=== PATIENT | male | born 1980 | race Two or more races ===

== ENCOUNTER 2016-11-01 13:56 | Emergency (ER) | payer OTHER ==
[~2016-11-01] VITALS: Ht 157.5 cm; Wt 62.8 kg
[2016-11-01 14:14] VITALS: BP 142/95
--- NOTE | 2016-11-01 14:31 | RAD ---
Indication injury. Pain particularly in the thumb. AP oblique and lateral views of the left hand were obtained. No bony abnormality is seen.
--- NOTE | 2016-11-01 14:42 | PHYS DOC ---
Past Medical History Past Medical History: No Pertinent History Past Surgical History: No Surgical History Alcohol Use: None Drug Use: None Adult General Chief Complaint Chief Complaint: HAND PROBLEM HPI HPI Patient is a 36 year old male presents to the emergency department stating that he let hit his left thumb and metacarpal area on a doorknob. He states that this happened on Saturday. He states he is having increased pain with movement of the thumb. He denies any numbness or tingling into the area. He states he has not taken anything for pain or discomfort. He has not used any ice packs elevation. He states he has increased pain with any movement with thumb. Patient is right-hand dominant. Review of Systems Review of Systems Constitutional: Denies fever or chills [] Eyes: Denies change in visual acuity, redness, or eye pain [] HENT: Denies nasal congestion or sore throat [] Respiratory: Denies cough or shortness of breath [] Cardiovascular: No additional information not addressed in HPI [] GI: Denies abdominal pain, nausea, vomiting, bloody stools or diarrhea [] : Denies dysuria or hematuria [] Musculoskeletal: Denies back pain. C/o left thumb pain Integument: Denies rash or skin lesions [] Neurologic: Denies headache, focal weakness or sensory changes [] Endocrine: Denies polyuria or polydipsia [] Current Medications Current Medications Current Medications Medications (Trade) Dose Ordered Sig/[facility] Start Time Stop Time Status Last Admin Dose Admin Ibuprofen (Motrin) 800 mg 1X ONCE 11/01/16 14:45 11/01/16 14:46 DC 11/01/16 15:04 800 MG Allergies Allergies Allergies Coded Allergies Type Severity Reaction Last Updated Verified No Known Drug Allergies 11/01/16 No Physical Exam Physical Exam Constitutional: Well developed, well nourished, no acute distress, non-toxic appearance. [] HENT: Normocephalic, atraumatic, bilateral external ears normal, oropharynx moist, no oral exudates, nose normal. [] Eyes: PERRLA, EOMI, conjunctiva normal, no discharge. [] Neck: Normal range of motion, no tenderness, supple, no stridor. [] Cardiovascular:Heart rate regular rhythm, no murmur [] Lungs & Thorax: Bilateral breath sounds clear to auscultation [] Skin: Warm, dry, no erythema, no rash. [] Back: No tenderness Extremities: Left thumb tenderness, no cyanosis, no clubbing, ROM intact, no edema. No swelling no discoloration or bruising noted to the left thumb or the left first metacarpal area. Neurologic: Alert and oriented X 3, normal motor function, normal sensory function, no focal deficits noted. [] Psychologic: Affect normal, judgement normal, mood normal. [] Current Patient Data Vital Signs Vital Signs Date Time Temp Pulse Resp B/P (MAP) Pulse Ox O2 Delivery O2 Flow Rate FiO2 11/01/16 14:14 98.9 103 16 100 Room Air 98.9 EKG EKG [] Radiology/Procedures Radiology/Procedures [][facility] [address] [place] [address] IMAGING REPORT Signed PATIENT: PERRY MAZARIEGOS ACCOUNT: [id number] : 1980 LOCATION: ER AGE: 36 SEX: M EXAM STATUS: PRE ER ORD. PHYSICIAN: ALEX TAPIA APRN REASON: left thumb pain hit with door today PROCEDURE: HAND LEFT 3V Indication injury. Pain particularly in the thumb. AP oblique and lateral views of the left hand were obtained. No bony abnormality is seen. DICTATED and SIGNED BY: HANANE JACOB MD DATE: 11/01/16 1425 CC: ALEX TAPIA APRN ~ Course & Med Decision Making Course & Med Decision Making Pertinent Labs and Imaging studies reviewed. (See chart for details) X-rays were negative. Recommended ibuprofen for pain and discomfort. Patient will be placed in a thumb spica splint with recommendations to follow-up with orthopedic in the next week. Signs and symptoms to return back to emergency department been provided. Patient agrees with discharge instructions treatment regimens and follow-up recommendations. [] Dragon Disclaimer Dragon Disclaimer This electronic medical record was generated, in whole or in part, using a voice recognition dictation system. Departure Departure Impression: Primary Impression: Thumb sprain Disposition: 01 HOME, SELF-CARE Condition: STABLE Referrals: CARLINE HIRSCH MD Patient Instructions: Splint Care, [id number], Thumb Sprain Additional Instructions: X-rays were negative for any bony abnormalities. Your thumb has been placed in a splint which needs to stay in place until you follow-up with orthopedic. Keep the splint clean and dry. Elevation as much as possible. Ice packs on 20 minutes off 20 minutes several times a day. Ibuprofen for pain and discomfort. Follow-up with orthopedic in the next week. Return back to emergency department for signs and symptoms of become worse. Splinting Splinting : Location: left thumb spica Hand-Made Type: orthoglass Splint: thumb spica Pre-Proc Neuro Vasc Exam: normal Post-Proc Neuro Vasc Exam: normal ALEX TAPIA STEREOTYPER HELPER November 01, 2016 14:42
[2016-11-01] MEDS ORDERED: IBUPROFEN 800 MG TABLET. PO ONE (14:45)
== END 2016-11-01 15:15 | disposition home or self-care (01) ==
LOC: ER 13:56
DX: S63.602A Unspecified sprain of left thumb, initial encounter (principal); W22.8XXA Striking against or struck by other objects, initial encounter; Y93.89 Activity, other specified; Y92.89 Other specified places as the place of occurrence of the external cause; Y99.8 Other external cause status
CPT/HCPCS: 29125; 73130; 99284-25